=== PATIENT | male | born 1985 | race African-American/Black ===

== ENCOUNTER 2025-01-03 16:57 | Emergency (ER) | payer MEDICAID ==
[~2025-01-03] VITALS: Ht 177.8 cm; Wt 100.0 kg
[2025-01-03 17:13] VITALS: TEMP 36.7; O2SAT 99
[2025-01-03] MEDS: IBUPROFEN 600MG TABLET PO STA (17:58)
[2025-01-03 18:15] LABS: BASOPHILS % 0.5 % (0.0-2.0); EOSINOPHILS % 2.5 % (0.0-5.0); HEMATOCRIT. 49.5 % (42.0-52.0); HEMOGLOBIN. 16.4 g/dL (14.0-18.0); LYMPHOCYTES % 26.7 % (20.0-50.0); MEAN CORPUSCULAR HEMOGLOBIN 31.4 pg (28.0-32.0); MEAN PLATELET VOLUME 7.6 fl (7.4-10.4); MONOCYTES % 9.8 % (2.0-8.0); NEUTROPHILS % 60.5 % (40.0-76.0); PLATELET 261 x1000/uL (130-400); RED BLOOD CELL COUNT 5.22 mill/uL (4.7-6.1); RED CELL DISTRIBUTION WIDTH 15.2 % (11.6-14.6); WHITE BLOOD COUNT 7.4 x1000/uL (4.5-11.0)
[2025-01-03] MEDS: ACETAMINOPHEN 325MG TABLET PO ONE (18:15)
[2025-01-03 18:20] LABS: CHLORIDE 101 mEq/L (98-107); POTASSIUM 3.7 mEq/L (3.5-5.1); SODIUM 137 mEq/L (136-145)
[2025-01-03 18:21] LABS: CALCIUM 9.1 mg/dL (8.7-10.4); CARBON DIOXIDE 26 mEq/L (21-32)
[2025-01-03 18:25] LABS: PROTHROMBIN TIME 10.5 sec (9.6-11.0)
[2025-01-03 18:26] LABS: CREATININE 0.8 mg/dL (0.6-1.3); ETHANOL BLOOD < 10 mg/dL (<10); GLUCOSE 72 mg/dL (70-105); UREA NITROGEN BLOOD 8 mg/dL (9-23)
[2025-01-03 18:28] LABS: ALANINE AMINOTRANSFERASE 24 IU/L (10-49); ALBUMIN 4.5 g/dL (3.2-4.8); ASPARTATE AMINOTRANSFERASE 28 IU/L (<34); BILIRUBIN DIRECT 0.2 mg/dL (<=3.0); BILIRUBIN TOTAL 0.8 mg/dL (0.1-1.0); PROTEIN TOTAL 7.3 g/dL (6.0-8.3)
[2025-01-03 18:39] LABS: TROPONIN I HIGH SENSITIVITY < 4 ng/L (3.0-53)
[2025-01-03 19:06] VITALS: BP 134/101; PULSE 80; RESP 18; O2SAT 99
[2025-01-03 19:09] LABS: CLARITY URINE CLEAR (CLEAR); COLOR URINE YELLOW (YELLOW); GLUCOSE URINE NEGATIVE (NEGATIVE); KETONES URINE NEGATIVE (NEGATIVE); LEUKOCYTE ESTERASE URINE NEGATIVE (NEGATIVE); NITRITE URINE NEGATIVE (NEGATIVE); OCCULT BLOOD URINE NEGATIVE (NEGATIVE); PROTEIN URINE NEGATIVE (NEGATIVE); SPECIFIC GRAVITY URINE 1.007 (1.005-1.030)
[2025-01-03 19:22] LABS: *AMPHETAMINES SCREEN URINE NEGATIVE (NEGATIVE); *BARBITURATES SCREEN URINE NEGATIVE (NEGATIVE); *BENZODIAZEPINES SCREEN URINE NEGATIVE (NEGATIVE); *COCAINE SCREEN URINE NEGATIVE (NEGATIVE)
[2025-01-03 19:23] LABS: CANNABINOID URINE SCREEN NEGATIVE (NEGATIVE); ECSTASY MDMA SCREEN URINE NEGATIVE (NEGATIVE); METHADONE URINE SCREEN NEGATIVE (NEGATIVE); OPIATES URINE SCREEN NEGATIVE (NEGATIVE); PHENCYCLIDINE URINE SCREEN NEGATIVE (NEGATIVE)
== END 2025-01-03 19:20 | disposition home or self-care (01) ==
LOC: ER 16:57
DX: R07.89 Other chest pain (principal); R06.02 Shortness of breath; Z88.6 Allergy status to analgesic agent; Z79.899 Other long term (current) drug therapy
CPT/HCPCS: 36415; 71045; 80048; 80076; 80305; 80320; 81003; 83880; 84484; 85025; 93005; 99285; G0480

== ENCOUNTER 2025-01-05 06:46 | Emergency (ER) | payer MEDICAID ==
[~2025-01-05] VITALS: Ht 175.3 cm; Wt 92.3 kg
[2025-01-05 06:54] VITALS: O2SAT 99
[2025-01-05] MEDS ORDERED: ISOP30DR11 EACH EAR (09:05)
[2025-01-05] MEDS ORDERED: ACET-2708 MT (09:05)
[2025-01-05] MEDS ORDERED: AMOX-494 MT (09:05)
[2025-01-05 09:29] VITALS: BP 134/90; PULSE 84; RESP 16; TEMP 36.5; O2SAT 99
== END 2025-01-05 09:31 | disposition home or self-care (01) ==
LOC: ER 06:59
DX: J03.90 Acute tonsillitis, unspecified (principal); H61.21 Impacted cerumen, right ear; Z88.6 Allergy status to analgesic agent; Z79.899 Other long term (current) drug therapy
CPT/HCPCS: 99283

== ENCOUNTER 2025-06-05 12:31 | Emergency (ER) | payer MEDICAID ==
[~2025-06-05] VITALS: Ht 177.8 cm; Wt 95.0 kg
[~2025-06-05 12:31] MED LIST: ACET-2708 MT; AMOX-494 MT; ISOP30DR11 EACH EAR
[2025-06-05 12:36] VITALS: O2SAT 98
[2025-06-05] MEDS: FAMOTIDINE 20MG TABLET PO ONE (13:39)
[2025-06-05] MEDS: MAGNESIUM/ALUMINUM HYDROXIDE/SIMETHICONE 30ML UDC PO ONE (13:39)
[2025-06-05] MEDS: ONDANSETRON 4MG ODT PO ONE (13:39)
[2025-06-05 15:52] LABS: BASOPHILS % 0.9 % (0.0-2.0); EOSINOPHILS % 1.2 % (0.0-5.0); HEMATOCRIT. 49.8 % (42.0-52.0); HEMOGLOBIN. 17.1 g/dL (14.0-18.0); LYMPHOCYTES % 33.9 % (20.0-50.0); MEAN PLATELET VOLUME 8.2 fl (7.4-10.4); MONOCYTES % 6.3 % (2.0-8.0); NEUTROPHILS % 57.7 % (40.0-76.0); PLATELET 313 x1000/uL (130-400); RED BLOOD CELL COUNT 5.22 mill/uL (4.7-6.1); RED CELL DISTRIBUTION WIDTH 13.1 % (11.6-14.6)
[2025-06-05 16:09] LABS: CREATININE 0.8 mg/dL (0.6-1.3)
[2025-06-05 16:10] LABS: UREA NITROGEN BLOOD < 5 mg/dL (9-23)
[2025-06-05 16:11] LABS: ASPARTATE AMINOTRANSFERASE 24 IU/L (<34)
[2025-06-05 16:12] LABS: BILIRUBIN DIRECT 0.2 mg/dL (<=3.0); BILIRUBIN TOTAL 0.5 mg/dL (0.1-1.0); PROTEIN TOTAL 8.4 g/dL (6.0-8.3)
[2025-06-05 17:05] VITALS: BP 131/90; PULSE 89; RESP 18; TEMP 37.1; O2SAT 99
== END 2025-06-05 17:15 | disposition home or self-care (01) ==
LOC: ER 12:31
DX: B34.9 Viral infection, unspecified (principal); Z79.899 Other long term (current) drug therapy; Z20.822 Contact with and (suspected) exposure to COVID-19; Z88.6 Allergy status to analgesic agent
CPT/HCPCS: 99284; 87426; 80076; 80048; 83690; 85025; 36415; Q0162